=== PATIENT | female | born 1995 | race Hispanic/Latino ===

== ENCOUNTER 2019-01-26 17:08 | Emergency (ER) | payer MEDICAID | END 2019-01-26 19:00 | disposition home or self-care (01) | LOC: EDH 17:08 | DX: T78.40XA Allergy, unspecified, initial encounter (principal); L50.9 Urticaria, unspecified; X58.XXXA Exposure to other specified factors, initial encounter | CPT/HCPCS: 99282 ==

== ENCOUNTER 2019-09-25 18:28 | Emergency (ER) | payer MEDICAID ==
[2019-09-25] MEDS ORDERED: ACETAMINOPHEN EXTRA STRENGTH 500 MG TABLET ONE (18:47)
[2019-09-25 19:15] LABS: RAPID GROUP A STREP NEGATIVE (NEGATIVE)
[2019-09-25 19:25] LABS: APPEARANCE,URINE Clear (CLEAR); BILIRUBIN,URINE Negative (NEGATIVE); COLOR,URINE Yellow (YELLOW); GLUCOSE, URINE (UA) Negative (NEGATIVE); KETONES,URINE 15 mg/dL (NEGATIVE); LEUKOCYTE ESTERASE ,URINE Negative (NEGATIVE); NITRATE,URINE Negative (NEGATIVE); OCCULT BLOOD,URINE Small (NEGATIVE); PH,URINE 5.5 (5.0-8.0); PROTEIN,URINE Negative (NEGATIVE)
[2019-09-25 19:29] LABS: HCG,QUAL RESULT NEGATIVE (NEGATIVE)
[2019-09-25 19:35] LABS: BACTERIA,URINE Rare /HPF (None Seen); RBC,URINE None Seen /HPF (0-1); SQUAMOUS EPITHELIAL CELL,UR 0-2 /HPF (0-2); WBC,URINE 0-1 /HPF (0-1)
== END 2019-09-25 20:03 | disposition home or self-care (01) ==
LOC: EDH 18:28
DX: J11.1 Influenza due to unidentified influenza virus with other respiratory manifestations (principal); Z90.49 Acquired absence of other specified parts of digestive tract
CPT/HCPCS: 81001; 81025; 87804; 87880

== ENCOUNTER 2019-12-25 17:40 | Emergency (ER) | payer MEDICAID ==
[2019-12-25] MEDS ORDERED: ACETAMINOPHEN EXTRA STRENGTH 500 MG TABLET ONE (18:42)
== END 2019-12-25 21:03 | disposition home or self-care (01) ==
LOC: EDH 17:40
DX: S93.401A Sprain of unspecified ligament of right ankle, initial encounter (principal); Z90.49 Acquired absence of other specified parts of digestive tract; W01.0XXA Fall on same level from slipping, tripping and stumbling without subsequent striking against object, initial encounter; Y93.89 Activity, other specified; Y92.098 Other place in other non-institutional residence as the place of occurrence of the external cause; Y99.8 Other external cause status
CPT/HCPCS: 73610; 81025

== ENCOUNTER 2020-03-26 12:52 | Emergency (ER) | payer MEDICAID ==
[2020-03-26 13:17] LABS: BASOPHILS % (AUTO) 0.7 % (0.0-5.0); EOSINOPHILS % (AUTO) 3.1 % (0.0-8.0); HEMATOCRIT 38.7 % (36-48); LYMPHOCYTES % (AUTO) 26.4 % (21.0-51.0); MEAN CORPUSCULAR HEMOGLOBIN 30.7 pg (27.0-33.0); MEAN CORPUSCULAR HGB CONC 33.6 g/dL (32.0-36.0); MEAN CORPUSCULAR VOLUME 91.5 fL (79-99); MONOCYTES % (AUTO) 6.5 % (3.0-13.0); NEUTROPHILS % (AUTO) 62.8 % (40.0-77.0); PLATELET COUNT (AUTO) 273 K/uL (130-400); RED BLOOD CELL COUNT(AUTO) 4.23 MIL/uL (4.00-5.50); RED CELL DISTRIBUTION WIDTH 13.4 % (11.0-15.5); WHITE BLOOD COUNT (AUTO) 7.3 K/uL (4.8-10.8)
[2020-03-26 13:31] LABS: CREATININE 0.8 mg/dL (0.5-1.5); POTASSIUM 3.5 mmol/L (3.5-5.1)
[2020-03-26 13:35] LABS: ALBUMIN 4.1 g/dL (3.5-5.0); BILIRUBIN,TOTAL 0.2 mg/dL (0.2-1.0); TOTAL PROTEIN, SERUM 8.1 g/dL (6.0-8.3)
== END 2020-03-26 14:04 | disposition home or self-care (01) ==
LOC: EDH 12:52
DX: J02.8 Acute pharyngitis due to other specified organisms (principal); R53.81 Other malaise; R53.83 Other fatigue; Z90.49 Acquired absence of other specified parts of digestive tract
CPT/HCPCS: 36415; 80053; 85025; 87880

== ENCOUNTER 2021-07-12 16:37 | Emergency (ER) | payer MEDICAID ==
[~2021-07-12] VITALS: Ht 157.5 cm; Wt 90.7 kg
[2021-07-12 16:40] VITALS: BP 108/71
[2021-07-12 17:18] LABS: APPEARANCE,URINE Clear (CLEAR); BILIRUBIN,URINE Negative (NEGATIVE); COLOR,URINE Yellow (YELLOW); GLUCOSE, URINE (UA) Negative (NEGATIVE); KETONES,URINE Negative (NEGATIVE); LEUKOCYTE ESTERASE ,URINE Trace (NEGATIVE); NITRATE,URINE Negative (NEGATIVE); OCCULT BLOOD,URINE Negative (NEGATIVE); PROTEIN,URINE Negative (NEGATIVE)
[2021-07-12 17:31] LABS: BACTERIA,URINE Rare /HPF (None Seen); RBC,URINE 0-1 /HPF (0-1); SQUAMOUS EPITHELIAL CELL,UR Few /HPF (0-2)
[2021-07-12 17:32] LABS: MUCUS,URINE Rare LPF (None Seen)
[2021-07-12 18:13] LABS: BASOPHILS % (AUTO) 0.3 % (0.0-5.0); EOSINOPHILS % (AUTO) 1.9 % (0.0-8.0); HEMATOCRIT 31.7 % (36-48); LYMPHOCYTES % (AUTO) 15.6 % (21.0-51.0); MEAN CORPUSCULAR HGB CONC 32.5 g/dL (32.0-36.0); MEAN CORPUSCULAR VOLUME 92.4 fL (79-99); MONOCYTES % (AUTO) 7.6 % (3.0-13.0); NEUTROPHILS % (AUTO) 74.2 % (40.0-77.0); PLATELET COUNT (AUTO) 213 K/uL (130-400); RED BLOOD CELL COUNT(AUTO) 3.43 MIL/uL (4.00-5.50); RED CELL DISTRIBUTION WIDTH 14.3 % (11.0-15.5)
[2021-07-12 18:23] LABS: CREATININE 0.7 mg/dL (0.5-1.5); POTASSIUM 3.6 mmol/L (3.5-5.1)
[2021-07-12 18:50] LABS: ALBUMIN 2.9 g/dL (3.5-5.0); BILIRUBIN,TOTAL 0.1 mg/dL (0.2-1.0); TOTAL PROTEIN, SERUM 6.7 g/dL (6.0-8.3)
[2021-07-12] MEDS ORDERED: ACET-3194 PO (19:08)
[2021-07-12] MEDS ORDERED: GUAIF10 PO (19:08)
[2021-07-12] MEDS ORDERED: FLUT16H NASAL (19:08)
[2021-07-12] MEDS ORDERED: AZIT250T9 PO (19:08)
== END 2021-07-12 19:35 | disposition home or self-care (01) ==
LOC: EDH 16:37
DX: O98.512 Other viral diseases complicating pregnancy, second trimester (principal); U07.1 COVID-19; Z3A.16 16 weeks gestation of pregnancy
CPT/HCPCS: 36415; 76805; 80053; 81001; 84702; 85025; 86900; 86901; 87635; 99284; C9803

== ENCOUNTER 2022-09-09 19:42 | Emergency (ER) | payer MEDICAID ==
[~2022-09-09] VITALS: Ht 157.5 cm; Wt 89.0 kg
[~2022-09-09 19:42] MED LIST: ACET-3194 PO; AZIT250T9 PO; FLUT16H NASAL; GUAIF10 PO
[2022-09-09] MEDS ORDERED: 0.9%NACL 1000ML 1,000 ML IV SCH (20:00)
[2022-09-09] MEDS ORDERED: ONDANSETRON 4MG INJ IVP ONE (20:00)
[2022-09-09 20:14] LABS: BASOPHILS % (AUTO) 0.4 % (0.0-5.0); EOSINOPHILS % (AUTO) 1.7 % (0.0-8.0); LYMPHOCYTES % (AUTO) 31.8 % (21.0-51.0); MEAN CORPUSCULAR HEMOGLOBIN 28.3 pg (27.0-33.0); MEAN CORPUSCULAR HGB CONC 32.7 g/dL (32.0-36.0); MEAN CORPUSCULAR VOLUME 86.7 fL (79-99); MONOCYTES % (AUTO) 9.9 % (3.0-13.0); PLATELET COUNT (AUTO) 306 K/uL (130-400); RED BLOOD CELL COUNT(AUTO) 4.73 MIL/uL (4.00-5.50); RED CELL DISTRIBUTION WIDTH 14.4 % (11.0-15.5); WHITE BLOOD COUNT (AUTO) 5.2 K/uL (4.8-10.8)
[2022-09-09 20:15] LABS: APPEARANCE,URINE CLOUDY (CLEAR); BILIRUBIN,URINE NEGATIVE (NEGATIVE); COLOR,URINE YELLOW (YELLOW); GLUCOSE, URINE (UA) NEGATIVE (NEGATIVE); KETONES,URINE NEGATIVE (NEGATIVE); LEUKOCYTE ESTERASE ,URINE 75 Leu/uL (NEGATIVE); NITRATE,URINE NEGATIVE (NEGATIVE); OCCULT BLOOD,URINE LARGE (NEGATIVE); PROTEIN,URINE 20 mg/dL (NEGATIVE); UROBILINOGEN,URINE 0.2 mg/dL (0.2-1.0)
[2022-09-09 20:18] VITALS: BP 108/72
[2022-09-09 20:20] LABS: HCG,QUALITATIVE URINE NEGATIVE (NEGATIVE)
[2022-09-09 20:22] LABS: CREATININE 0.8 mg/dL (0.5-1.5); POTASSIUM 3.3 mmol/L (3.5-5.1)
[2022-09-09 20:26] LABS: BACTERIA,URINE RARE /HPF (None Seen); MUCUS,URINE RARE LPF (None Seen); SQUAMOUS EPITHELIAL CELL,UR MOD /HPF (0-2); YEAST,URINE BUDDING FEW /HPF (None Seen)
[2022-09-09 20:28] LABS: ALBUMIN 3.6 g/dL (3.5-5.0); TOTAL PROTEIN, SERUM 8.1 g/dL (6.0-8.3)
[2022-09-09] MEDS ORDERED: CEFTRIAXONE 1G VIAL IVP ONE (21:00)
[2022-09-09] MEDS ORDERED: CEPH500B PO (21:57)
== END 2022-09-09 22:35 | disposition home or self-care (01) ==
LOC: EDH 19:42
DX: N39.0 Urinary tract infection, site not specified (principal); Z79.899 Other long term (current) drug therapy; Z90.49 Acquired absence of other specified parts of digestive tract
CPT/HCPCS: 99284; 96374; 96375; 80053; 83690; 85025; 87088; 81001; 81025; 36415; J7030; J0696; J2405

== ENCOUNTER 2022-12-10 17:49 | Emergency (ER) | payer MEDICAID ==
[~2022-12-10] VITALS: Ht 157.5 cm; Wt 91.6 kg
[~2022-12-10 17:49] MED LIST changes: +CEPH500B PO
[2022-12-10 19:03] LABS: APPEARANCE,URINE CLEAR (CLEAR); BILIRUBIN,URINE NEGATIVE (NEGATIVE); COLOR,URINE LIGHT-YELLOW (YELLOW); GLUCOSE, URINE (UA) NEGATIVE (NEGATIVE); KETONES,URINE NEGATIVE (NEGATIVE); LEUKOCYTE ESTERASE ,URINE NEGATIVE Leu/uL (NEGATIVE); NITRATE,URINE NEGATIVE (NEGATIVE); PROTEIN,URINE NEGATIVE (NEGATIVE); UROBILINOGEN,URINE 0.2 mg/dL (0.2-1.0)
[2022-12-10 19:05] LABS: HCG,QUALITATIVE URINE NEGATIVE (NEGATIVE)
[2022-12-10 19:07] LABS: MUCUS,URINE RARE LPF (None Seen); RBC,URINE 0-1 /HPF (0-1); SQUAMOUS EPITHELIAL CELL,UR RARE /HPF (0-2); WBC,URINE 0-1 /HPF (0-1)
[2022-12-10 19:09] LABS: BASOPHILS % (AUTO) 0.5 % (0.0-5.0); EOSINOPHILS % (AUTO) 4.9 % (0.0-8.0); HEMATOCRIT 34.6 % (36-48); LYMPHOCYTES % (AUTO) 28.2 % (21.0-51.0); MEAN CORPUSCULAR HEMOGLOBIN 29.6 pg (27.0-33.0); MEAN CORPUSCULAR HGB CONC 32.7 g/dL (32.0-36.0); MEAN CORPUSCULAR VOLUME 90.6 fL (79-99); MONOCYTES % (AUTO) 10.1 % (3.0-13.0); NEUTROPHILS % (AUTO) 55.4 % (40.0-77.0); PLATELET COUNT (AUTO) 276 K/uL (130-400); RED BLOOD CELL COUNT(AUTO) 3.82 MIL/uL (4.00-5.50); RED CELL DISTRIBUTION WIDTH 14.7 % (11.0-15.5); WHITE BLOOD COUNT (AUTO) 4.3 K/uL (4.8-10.8)
[2022-12-10 19:10] LABS: CREATININE 0.7 mg/dL (0.5-1.5); POTASSIUM 3.8 mmol/L (3.5-5.1)
[2022-12-10 19:15] LABS: ALBUMIN 3.3 g/dL (3.5-5.0); MAGNESIUM 1.8 mg/dL (1.80-2.40); PHOSPHORUS 3.4 mg/dL (2.5-4.9); TOTAL PROTEIN, SERUM 6.6 g/dL (6.0-8.3)
[2022-12-10] MEDS ORDERED: ONDANSETRON ODT 4MG TAB SL ONE (21:00)
[2022-12-10] MEDS ORDERED: ACETAMINOPHEN 500 MG TABLET PO ONE (21:00)
[2022-12-10] MEDS ORDERED: 0.9%NACL 1000ML 1,000 ML IV ONE ×2 (21:30→21:40)
[2022-12-10] MEDS ORDERED: ONDANSETRON ODT 4MG TAB ONE (21:40)
[2022-12-10] MEDS ORDERED: ACETAMINOPHEN 500 MG TABLET ONE (21:40)
[2022-12-10] MEDS ORDERED: KETOROLAC 15MG/ML VIAL (15MG/ML) IV ONE (23:30)
[2022-12-11 00:08] VITALS: BP 121/68
== END 2022-12-11 00:54 | disposition home or self-care (01) ==
LOC: EDH 17:49
DX: N83.202 Unspecified ovarian cyst, left side (principal); M54.50 Low back pain, unspecified; Z90.49 Acquired absence of other specified parts of digestive tract
CPT/HCPCS: 99285; 74176; 96374; 76856; 96361; 83735; 84100; 80053; 85025; 81001; 81025; 36415; J7030; J1885

== ENCOUNTER 2023-03-25 19:48 | Emergency (ER) | payer MEDICAID ==
[~2023-03-25] VITALS: Ht 157.5 cm; Wt 95.3 kg
[2023-03-25 23:42] LABS: BASOPHILS # (AUTO) 0.03 K/uL (0.00-0.20); BASOPHILS % (AUTO) 0.4 % (0.0-5.0); EOSINOPHILS # (AUTO) 0.18 K/uL (0.00-0.70); EOSINOPHILS % (AUTO) 2.2 % (0.0-8.0); IMMATURE GRANULOCYTE ABSOLUTE 0.06 K/uL (0-1); MEAN CORPUSCULAR HEMOGLOBIN 29.6 pg (27.0-33.0); MEAN CORPUSCULAR HGB CONC 33.1 g/dL (32.0-36.0); MEAN CORPUSCULAR VOLUME 89.6 fL (79-99); MONOCYTES # (AUTO) 0.7 K/uL (0.1-1.0); MONOCYTES % (AUTO) 8.4 % (3.0-13.0); NEUTROPHILS # (AUTO) 4.1 K/uL (1.8-7.7); NEUTROPHILS % (AUTO) 51.3 % (40.0-77.0); PLATELET COUNT (AUTO) 268 K/uL (130-400); RED BLOOD CELL COUNT(AUTO) 4.02 MIL/uL (4.00-5.50); RED CELL DISTRIBUTION WIDTH 14.6 % (11.0-15.5); WHITE BLOOD COUNT (AUTO) 8.1 K/uL (4.8-10.8)
[2023-03-25 23:58] LABS: CREATININE 0.8 mg/dL (0.5-1.5); POTASSIUM 3.8 mmol/L (3.5-5.1)
[2023-03-26 00:02] LABS: ALBUMIN 3.6 g/dL (3.5-5.0); BILIRUBIN,TOTAL 0.2 mg/dL (0.2-1.0); TOTAL PROTEIN, SERUM 7.2 g/dL (6.0-8.3)
[2023-03-26 00:56] LABS: ADD UA MICROSCOPIC NO; APPEARANCE,URINE CLEAR (CLEAR); BILIRUBIN,URINE NEGATIVE (NEGATIVE); COLOR,URINE LIGHT-YELLOW (YELLOW); GLUCOSE, URINE (UA) NEGATIVE (NEGATIVE); KETONES,URINE NEGATIVE (NEGATIVE); LEUKOCYTE ESTERASE ,URINE NEGATIVE Leu/uL (NEGATIVE); NITRATE,URINE NEGATIVE (NEGATIVE); OCCULT BLOOD,URINE NEGATIVE (NEGATIVE); PH,URINE 6.5 (5.0-8.0); PROTEIN,URINE NEGATIVE (NEGATIVE); UROBILINOGEN,URINE 0.2 mg/dL (0.2-1.0)
[2023-03-26 01:02] VITALS: BP 128/72; PULSE 74; RESP 18; O2SAT 98
[2023-03-26] MEDS ORDERED: ONDA4TAB10 PO (01:04)
[2023-03-26] MEDS ORDERED: IBUP-2070 PO (01:04)
== END 2023-03-26 01:10 | disposition home or self-care (01) ==
LOC: EDH 19:48
DX: R10.30 Lower abdominal pain, unspecified (principal); Z90.49 Acquired absence of other specified parts of digestive tract
CPT/HCPCS: 36415; 76856; 80053; 81003; 83690; 85025